=== PATIENT | male | born 1960 | race Caucasian/White ===

== ENCOUNTER 2017-06-24 16:52 | Emergency (ER) | payer SELFPAY ==
[~2017-06-24] VITALS: Ht 172.7 cm; Wt 64.5 kg
[~2017-06-24 16:52] MED LIST: FLEXERIL10 MG PO; MOTRIN800 MG PO
[2017-06-24] MEDS ORDERED: SKELAXIN800 MG PO (18:18)
[2017-06-24] MEDS ORDERED: MOTRIN600 MG PO (18:18)
[2017-06-24] MEDS ORDERED: TRAMADOL HCL50 MG PO (18:18)
[2017-06-24 18:28] VITALS: BP 130/92
[2017-06-24 18:29] LABS: ADD MIUA? NO; BILIRUBIN NEGATIVE; BLOOD NEGATIVE; COLOR YELLOW ((YELLOW)); GLUCOSE (STRIP) NEGATIVE; KETONES NEGATIVE; LEUKOCYTES NEGATIVE; NITRITE NEGATIVE; PROTEIN (STRIP) NEGATIVE; SPECIFIC GRAVITY 1.009 (1.000-1.030); UCUL ADDED? NO; UROBILINOGEN 0.2 MG/DL (0.2-1.0)
== END 2017-06-24 18:30 | disposition home or self-care (01) ==
LOC: EME 16:52
PROVIDERS: Physician Assistant
DX: S39.012A Strain of muscle, fascia and tendon of lower back, initial encounter (principal); Y99.0 Civilian activity done for income or pay; X58.XXXA Exposure to other specified factors, initial encounter
CPT/HCPCS: 72131; 81003; 99281; 99283; J1885